=== PATIENT | male | born 1955 | race Two or more races ===

== ENCOUNTER 2018-10-06 08:32 | Emergency (ER) | payer OTHER ==
[~2018-10-06] VITALS: Ht 175.3 cm; Wt 136.1 kg
[~2018-10-06 08:32] MED LIST: ALDACTONE25 MG PO; ASA-EC81 MG PO; TARKA 4/2401 BOTTLE PO
[2018-10-06] MEDS ORDERED: TOPROL XL100 M1 (08:46)
== END 2018-10-06 17:45 | disposition home or self-care (01) ==
LOC: ER 08:32
DX: N20.1 Calculus of ureter (principal)